=== PATIENT | male | born 1935 | race Caucasian/White ===

== ENCOUNTER 2017-02-27 05:38 | Day surgery (SDC) | payer OTHER ==
[~2017-02-27] VITALS: Ht 175.3 cm; Wt 77.3 kg
[~2017-02-27 05:38] MED LIST: ASPI81 PO; ATOR40TA49 PO; CARV12.52 PO; FURO1TAB93 PO; HYDR-3534 PO; ISOS30 PO; KLOR20TA6 PO; LISI-360 PO; PANT20 PO; REST30CA PO; TAB-TAB PO
[2017-02-27] MEDS ORDERED: LORazepam 1 MG TAB SL SCH (06:00)
[2017-02-27] MEDS ORDERED: CHLORHEXIDINE GLUCONATE 2 % 1 PACK (2 CLOTHS) TOPICAL PRN (06:00)
[2017-02-27] MEDS: SODIUM CHLORID 0.9% 500 ML INJ 500 ML IV SCH ×2 (06:00→22:40)
[2017-02-27] MEDS ORDERED: LACTATED RINGER'S 1000 ML IV PRN (06:00)
[2017-02-27] MEDS ORDERED: SODIUM CHLORID 0.9% 500 ML IV PRN (06:00)
[2017-02-27] MEDS ORDERED: METOPROLOL TARTRATE 25 MG TAB PO PRN (06:00)
[2017-02-27] MEDS ORDERED: POVIDONE IODINE 5% (ANTISEPSIS KIT) 4 APPLICATIONS EACH NARE PRN (06:00)
[2017-02-27 07:02] LABS: AUTOMATED NEUTROPHIL # 4.2 TH/MM3 (1.8-7.7); BASOPHIL % 0.7 % (0.0-2.0); EOSINOPHIL # 0.2 TH/MM3 (0-0.4); EOSINOPHIL % 2.5 % (0.0-4.0); HEMO FLAGS DIFF FINAL; LYMPH % 16.2 % (9.0-44.0); MEAN CELL VOLUME 99.9 FL (80.0-100.0); MEAN CORPUSCULAR HEMOGLOBIN 35.2 PG (27.0-34.0); MEAN CORPUSCULAR HGB CONC 35.3 % (32.0-36.0); NEUT % 67.6 % (16.0-70.0); PLATELET COUNT 266 TH/MM3 (150-450); RED CELL DISTRIBUTION WIDTH 14.3 % (11.6-17.2); WHITE BLOOD COUNT 6.2 TH/MM3 (4.0-11.0)
[2017-02-27 07:06] VITALS: BP 131/86; PULSE 49; RESP 18; TEMP 97.1; O2SAT 97
[2017-02-27] MEDS ORDERED: MULT-65 PO (07:10)
[2017-02-27] MEDS ORDERED: PANT20TA2 PO (07:10)
[2017-02-27] MEDS ORDERED: ATOR40TA16 PO (07:10)
[2017-02-27] MEDS ORDERED: NITR0.4S SL (07:10)
[2017-02-27] MEDS ORDERED: CARV12.52 PO (07:10)
[2017-02-27] MEDS ORDERED: ISOS30TA3 PO (07:10)
[2017-02-27] MEDS ORDERED: ASPI81TA23 PO (07:10)
[2017-02-27] MEDS ORDERED: POTA8TAB PO (07:10)
[2017-02-27] MEDS ORDERED: HYDR-2376 PO (07:10)
[2017-02-27] MEDS ORDERED: FURO40TA PO (07:10)
[2017-02-27] MEDS ORDERED: TEMA30CA PO (07:10)
[2017-02-27] MEDS ORDERED: CALC1TAB87 PO (07:10)
[2017-02-27] MEDS ORDERED: LISI10TA3 PO (07:10)
[2017-02-27 07:17] LABS: BICARBONATE 28.3 MEQ/L (21.0-32.0); POTASSIUM 3.6 MEQ/L (3.5-5.1)
[2017-02-27 07:21] LABS: APTT (PATIENT) 24.9 SEC (24.3-30.1); INTERNATIONAL NORMALIZED RATIO 1.3 RATIO; PROTHROMBIN TIME - PATIENT 12.8 SEC (9.8-11.6)
[2017-02-27] MEDS ORDERED: LIDOCAINE HCL 2% 50 ML VIAL ONE (07:36)
[2017-02-27] MEDS ORDERED: HEPARIN-NS/PF INJ 1,000 ML ONE (07:37)
[2017-02-27] MEDS ORDERED: KETAMINE HCL 500 MG/10 ML VIAL ONE (07:40)
[2017-02-27] MEDS ORDERED: HEPARIN-NS/PF INJ 2,000 ML ONE (09:13)
[2017-02-27] MEDS ORDERED: PROTAMINE SULFATE 50 MG/5 ML VIAL ONE (10:43)
--- NOTE | 2017-02-27 10:56 | CATHPROC ---
[employer] HIS Report Study Information Study Number Admission Scheduled Start Study Start [id number] Feb 27 2017 5:38AM 02/27/2017 Feb 27 2017 7:11AM [place] [facility] Electrophysiology Study Admit Source Facility Department Other [facility] Physician and Clinical Staff Initial Wilmer Pacheco Mold Holder Miguel Owusu,RT(R) Mold Holder Patience Suresh,RESIDENTIAL PROPERTY TAX APPRAISER Other Anesthesia, BATTERY FILLER Recorder Mavis Holder,MARLON Recorder Audrey Vasques,MARLON Scrub Zamzam Swain,BUILDING CONSTRUCTION ESTIMATOR TECH2 Procedures Performed Procedure Location (Site) Vessel Name Ablation Procedure ICE CATHETER INSERT RA Atruim RF Ablation RF Ablation LV Ventricle Equipment Time Accounting Tutor Description Size Mfg Part Number Used/Scraped BIOSENSE WILL CATHETER, THERMOCOOL NON- [id number] 07:58 Used INC. EZEQUIEL TC D-F *[id number] BIOSENSE WILL 07:53 SET, TUBING COOLFLOW * [id number] Used INC. [id number] 07:13 [employer]arta [employer] PACK, CCL CUSTOM * Used *[id number] 07:13 Sarta PACER MOTA, LIMB * 2530 *[id number] Used [id number] 08:13 NAMIC TUBING, HIGH PRESSURE 48" 48" Used *[id number] 07:13 [employer] MED[employer] BLANKET,WARM AIR CCL * Used *[id number] 07:55 [employer] CATHETER, JSN, QUAD FR 5 Used *[id number] 07:55 [employer] CATHETER, JSN, QUAD FR 5 Used *[id number] 07:55 [employer] CATHETER, JSN, QUAD FR 5 Used *[id number] 07:13 [employer] ELECTRODE KIT, EZEQUIEL X SURFACE * Used *[id number] SHEATH, EPS, FR10 FAST CATH 07:54 [employer] FR 10 TRIO [id number] Used TRIO 07:54 [employer] SHEATH, EPS, FR4 FAST CATH FR 4 [id number] Used [id number] 07:52 [employer] SHEATH, EPS, FR5 FAST CATH FR 5 Used *[id number] 07:54 [employer] SHEATH, EPS, FR6 FAST CATH FR 6 Used *[id number] 07:54 [employer] SHEATH, EPS, FR7 FAST CATH FR 7 [id number] Used [id number] 07:54 [employer] SHEATH, EPS, FR8 FAST CATH FR 8 Used *[id number] 08:29 [facility] SHEATH, EPS, FR8 FAST CATH FR 8 Used *[id number] CATHETER, ACUNAV FR10 ICE [id number] 08:06 CATY FR 10 Used (CATY) *[id number] [facility], ELECTROSURGICAL 07:13 * [id number] *[id number] Used SURGICAL GROUNDING (BLUE) History: Allergies Allergy Reaction No Known Allergies History: Risk Factors Hypertension Dyslipidemia Previous UT Previous Heart Failure Yes Yes Yes Yes Prior PCI Prior CABG Yes Yes Labs Hgb (g/dl) Hct (%) RBC (MIL/MM3) WBC (l/cumm) Platelets (thousands) 11.60-17.00 35.00-51.00 4.00-5.90 4.00-11.00 150.00-450.00 14.0 40 4 6.2 266 Na (meq/l) K (meq/l) Cl (meq/l) CO2 (mmol/L) Ca (mg/dl) 136.00-145.00 3.50-5.10 98.00-107.00 21.00-32.00 8.50-10.10 143 3.6 108 28.3 9.1 PT (sec) PTT (sec) INR (PTT:PT) 9.80-11.60 24.30-30.10 0.90-1.10 12.8 24.9 1.3 Medication Medication Total Dose (Bolus/Oral) Medication Total Dosage/Unit 1% XYLOCAINE 40 mL HEPARIN 8000 units PROTAMINE 20 mg Medications (Bolus/Oral) Medication Time Given Dosage/Unit Administered By Reason 1% XYLOCAINE 02/27/2017 8:22:00 AM 20 mL Wilmer Kelly 20 mL 1% XYLOCAINE given in lab by Wilmer Kelly in Left Groin via Subcutaneous. Ordered by Rohti Kelly. 1% XYLOCAINE 02/27/2017 8:27:23 AM 20 mL Wilmer Kelly 20 mL 1% XYLOCAINE given in lab by Wilmer Kelly in Right Groin via Subcutaneous. Ordered by Luna Kelly. HEPARIN 02/27/2017 8:42:49 AM 5000 units Anesthesia, BATTERY FILLER As per physicians v erbal order 5000 units HEPARIN given in lab by Anesthesia, BATTERY FILLER via Peripheral IV. Ordered by Wilmer Kelly. Reas on: As per physicians verbal order. HEPARIN 02/27/2017 8:56:42 AM 2000 units Anesthesia, BATTERY FILLER As per physicians v erbal order 2000 units HEPARIN given in lab by Anesthesia, BATTERY FILLER via Peripheral IV. Ordered by Wilmer Kelly. Reas on: As per physicians verbal order. HEPARIN 02/27/2017 9:17:05 AM 1000 units Anesthesia, BATTERY FILLER As per physicians v erbal order 1000 units HEPARIN given in lab by Anesthesia, BATTERY FILLER via Peripheral IV. Ordered by Wilmer Kelly. Reas on: As per physicians verbal order. 02/27/2017 10:44:00 PROTAMINE 20 mg Anesthesia, BATTERY FILLER As per physicians verbal order AM 20 mg PROTAMINE given in lab by Anesthesia, BATTERY FILLER via Peripheral IV. Ordered by Wilmer Kelly. Reason: As per physicians verbal order. Initial Case Assessment Cardiovascular HR Rhythm NIBP Chest Pain 89 irreg 131/86 0 Edema Present Skin color Skin None Normal Warm Dry Circulatory - Right Pulses Dorsalis Pedis 1 Scale (0,1,2,3,4,d) Circulatory - Left Pulses Dorsalis Pedis 1 Scale (0,1,2,3,4,d) Circulatory - Lower Extremities Color Lower Right Color Lower Left Normal Normal Neurological State Oriented to time-place- Alert Moves all extremities person Respiration - General Respiration Rate SpO2 (%) (B/min) 20 96 Final Case Assessment Cardiovascular HR NIBP 58 159/72 Edema Present Skin color Skin None Normal Warm Dry Neurological State Oriented to time-place- Alert Moves all extremities person Respiration - General Respiration Rate SpO2 (%) (B/min) 20 99 Chronological Log Time Study Chronological Log 7:32:46 Patient arrived via Bed. 7:32:47 Patient Name, D.O.B, / Armband Verified By R.N. 7:32:48 Consent signed by the physician and the patient and verified by the [facility] staff. 7:32:49 History and physical on the chart. 7:32:50 Pre-op and post- op instructions given; patient acknowledges understanding of instructions. 7:33:38 Verbal Stimulation=2 Physical Stimulation=2 Airway=2 Respiration=2 TOTAL=8. (0=absent, 1=andrew ited, 2=present) 7:33:53 Presedation assessment performed by [facility] RN. 7:33:57 Patient has been NPO for More than 6Hrs. 7:33:59 Skin Breakdown- none per pt 7:34:09 Patient Warmer Placed on the Table. 7:36:10 Disposable Defibrillator Pads Placed On Patient. 7:36:30 Anesthesia at bedside. Assumes care of patient. 7:37:10 Asher Prominences Protected 7:37:14 A # 20 IV was noted in the Antecubital (right). Grade = 0 0.9%NaCl infusing @ KVO. 7:37:15 A # 20 IV was noted in the Antecubital (left). Grade = 0 0.9%NaCl infusing @ KVO. Assessment: Initial Case, HR=89 BPM, Rhythm=irreg, YSJL=048/86 mmhg, Chest Pain=0, Edema=None, Color=Normal, Skin = Warm, Dry Right Pulses: Mainor Ped=1 Left Pulses: Mainor Ped=1 7:38:58 Lower Right Extremities: Color=Normal Lower Left Extremities: Color=Normal Neurological: State=Alert, Ox3, HAZEL Respiration: Resp=20 B/min, SpO2=96 % 7:39:09 Table restraints applied according to hospital policy 7:55:22 Bilateral groins prepped with 2% chlorhexidine, and draped after a 3 minute waiting time. 7:58:22 Reference ECG taken 8:00:57 MD paged 8:16:12 MD arrived. Time Out. Correct patient, procedure, procedure equipment, site and side verified with physician present. Time 8:21:39 concurred by MD, individual staff and BATTERY FILLER. Time Out #2 - Consents verified, patient in correct position, all results are labled and display ed, safety precautions 8:21:57 taken, antibiotics administered. Time out concurred by MD, individual staff and BATTERY FILLER in procedur e 8:21:59 Case Start 8:22:00 20 mL 1% XYLOCAINE given in lab by Wilmer Kelly in Left Groin via Subcutaneous. Ordered by Wilmer Kelly. 8:22:50 Vascular access was obtained in the Fem Vein (left). 8:22:56 Vascular access was obtained in the Fem Vein (left). 8:23:00 Vascular access was obtained in the Fem Vein (left). 8:23:31 Vascular access was obtained in the Fem Art (left). 8:26:02 A SHEATH, EPS, FR6 FAST CATH FR 6 was advanced into the Fem Vein (left) using the Modified S eldinger technique. 8:26:04 A SHEATH, EPS, FR7 FAST CATH FR 7 was advanced into the Fem Vein (left) using the Modified S eldinger technique. 8:26:06 A SHEATH, EPS, FR4 FAST CATH FR 4 was advanced into the Fem Art (left) using the Modified Se marissa technique. A CATHETER, JSN, QUAD FR 5 was advanced vis Fem Vein (left) and placed in the CS. Placement was visually 8:26:10 confirmed under fluoroscopy. A CATHETER, JSN, QUAD FR 5 was advanced vis Fem Vein (left) and placed in the HIS. Placement was visually 8:26:40 confirmed under fluoroscopy. A CATHETER, JSN, QUAD FR 5 was advanced vis Fem Vein (right) and placed in the RVA. Placement wa s visually 8:27:03 confirmed under fluoroscopy. 8:27:23 20 mL 1% XYLOCAINE given in lab by Wilmer Kelly in Right Groin via Subcutaneous. Ordered by Wilmer Kelly. 8:27:48 Vascular access was obtained in the Fem Vein (right). 8:28:06 A SHEATH, EPS, FR6 FAST CATH FR 6 was advanced into the Fem Art (right) using the Modified S eldinger technique. A SHEATH, EPS, FR10 FAST CATH TRIO FR 10 TRIO was advanced into the Fem Vein (left) using the M odified Seldinger 8:33:31 technique. A CATHETER, THERMOCOOL NON-EZEQUIEL TC D-F was advanced vis Fem Vein (left) and placed in the RVOT. Placement 8:33:40 was visually confirmed under fluoroscopy. 8:34:45 RF Ablation of the ~SITE~ with a CATHETER, THERMOCOOL NON-EZEQUIEL TC D-F. RVOT ABLATION OUT. 8:35:42 8:36:55 Vascular access was obtained in the Fem Art (right). 8:37:07 A SHEATH, EPS, FR8 FAST CATH FR 8 was advanced into the Fem Art (right) using the Modified S eldinger technique. 8:38:40 CATHETER, ACUNAV FR10 ICE (CATY) FR 10 Was Postioned. 5000 units HEPARIN given in lab by Anesthesia, BATTERY FILLER via Peripheral IV. Ordered by Wilmer Kelly . Reason: As per 8:42:49 physicians verbal order. A CATHETER, THERMOCOOL NON-EZEQUIEL TC D-F was advanced vis Fem Vein (right) and placed in the LV. P lacement was 8:45:06 visually confirmed under fluoroscopy. 8:45:07 Mapping in progress. 8:52:21 Activated Clotting Time Drawn 8:55:48 RF Ablation of the LV with a CATHETER, THERMOCOOL NON-EZEQUIEL TC D-F. 8:56:33 ACT (Normal Range 90-180) = 247 2000 units HEPARIN given in lab by Anesthesia, BATTERY FILLER via Peripheral IV. Ordered by Wilmer Kelly . Reason: As per 8:56:42 physicians verbal order. 9:05:41 Activated Clotting Time Drawn 9:16:53 ACT (Normal Range 90-180) = 252 1000 units HEPARIN given in lab by Anesthesia, BATTERY FILLER via Peripheral IV. Ordered by Wilmre Kelly . Reason: As per 9:17:05 physicians verbal order. 9:53:50 Activated Clotting Time Drawn 9:58:53 ACT (Normal Range 90-180) = 274 10:09:44 Ablation continues. 10:30:11 Activated Clotting Time Drawn 10:32:18 ACT (Normal Range 90-180) = 276 10:38:54 Ablation catheter removed. 10:40:39 Ablation completed. 10:41:04 Ablation procedure performed: VT. PVC Ablation 10:41:41 EP Procedure was performed. Assessment: Final Case, HR=58 BPM, FYQX=267/72 mmhg, Edema=None, Color=Normal, Skin = Warm, Dry 10:41:57 Neurological: State=Alert, Ox3, HAZEL Respiration: Resp=20 B/min, SpO2=99 % 10:42:45 Catheter(s) removed without difficulty 10:42:48 Sheath(s) left in place, will be removed in Holding Area 10:42:53 Sterile dressing applied to site 10:43:25 No case complications noted. 10:43:28 Cine recording checked. 10:43:34 Holding Area notified of successful intervention. 10:43:37 Bedside Report will be given. 10:43:40 DOCU called. Spoke to Bobbi MASON 20 mg PROTAMINE given in lab by Anesthesia, BATTERY FILLER via Peripheral IV. Ordered by Wilmer Kelly. Reason: As per 10:44:00 physicians verbal order. 10:44:01 Defibrillator and ground pads removed. Skin intact. 10:52:16 Activated Clotting Time Drawn 10:54:42 ACT (Normal Range 90-180) = 135 10:55:07 Case End 11:10:00 Patient moved to stretcher and transported to DOCU in stable condition. End Study - Contrast Media Used In Study Contrast Total Opened (mL) Total Used (mL) Total Wasted (mL) Unspecified 0 0 0 End Study - Radiation Exposure Fluoro Time (minutes) 35.9 End Study - Patient Disposition Complications Transferred To Interventional Outcome No Telemetry Bed successful
[2017-02-27] MEDS ORDERED: ATROPINE SULFATE 1 MG/ML VIAL IV PUSH PRN (11:00)
[2017-02-27] MEDS ORDERED: LORazepam 2 MG/ML VIAL IV PUSH PRN (11:00)
[2017-02-27] MEDS ORDERED: oxyCODONE/ACETAMINOPHEN 5 MG/325 MG TAB PO PRN (11:00)
[2017-02-27] MEDS ORDERED: ONDANSETRON HCL 4 MG/2 ML VIAL IV PUSH PRN (11:00)
[2017-02-27] MEDS ORDERED: BACITRACIN OINT 0.9 GM PKT TOP ONE (11:00)
[2017-02-27] MEDS ORDERED: LIDOCAINE HCL 1% 50 ML VIAL INFIL PRN (11:00)
[2017-02-27] MEDS ORDERED: SODIUM CHLOR 0.9% 250 ML INJ 250 ML IV PRN (11:00)
[2017-02-27] MEDS ORDERED: DO NOT ADM ANY ANTICOAGULANT DRUGS PRN (11:02)
[2017-02-27] MEDS ORDERED: MORPHINE SULFATE 4 MG/ML INJ ONE (11:11)
[2017-02-27] MEDS ORDERED: NON-FORMULARY DRUG (Hydrocodone-Acetaminophen 1 TAB) PO PRN (11:15)
[2017-02-27] MEDS ORDERED: TEMAZEPAM 15 MG CAP PO PRN (11:15)
[2017-02-27 13:00] VITALS: BP 157/88; PULSE 73; RESP 16; TEMP 97.8; O2SAT 96
[2017-02-27] MEDS ORDERED: PILL SPLITTER OTHER PRN (15:15)
[2017-02-27] MEDS: SOTALOL HCL 80 MG TAB PO SCH ×2 (15:17→21:01)
[2017-02-27 16:00] VITALS: BP 128/86; PULSE 69; RESP 16; TEMP 98.2; O2SAT 97
[2017-02-27 19:00] VITALS: PULSE 58
--- NOTE | 2017-02-27 19:30 | EKG ---
Date Performed: 02/27/2017 Time Performed: 06:46:14 PTAGE: 81 years EKG: Sinus rhythm with PVC(s). Anterolateral ST-T changes are nonspecific Can not exclude ischemia. Since previous tra cing, no significant change noted Abnormal ECG PREVIOUS TRACING : 01/02/2016 16.34 DOCTOR: Jeremias Hall Interpretating Date/Time 02/27/2017 19:29:43
[2017-02-27 20:00] VITALS: BP 127/65; PULSE 127; TEMP 98.1; O2SAT 92
[2017-02-27] MEDS ORDERED: CARVEDILOL 12.5 MG TAB PO SCH (21:00)
[2017-02-27] MEDS ORDERED: ATORVASTATIN 40 MG TAB PO SCH (21:00)
[2017-02-27] MEDS: oxyCODONE/ACETAMINOPHEN 5 MG/325 MG TAB PO PRN (21:02)
[2017-02-27 23:00] VITALS: BP 127/65; PULSE 50; PULSE 66; TEMP 98.1; O2SAT 92
[2017-02-28 03:00] VITALS: PULSE 58
[2017-02-28 04:50] VITALS: BP 135/69; PULSE 64; TEMP 98.5; O2SAT 90
--- NOTE | 2017-02-28 08:03 | PD.CARD.PN ---
Subjective Subjective Remarks Feeling better. Objective Medications Current Medications Medications (Trade) Dose Ordered Sig/Stephie Route Start Time Stop Time Status Last Admin Sodium Chloride 500 ml @ 30 mls/hr [id number] IV 02/27/17 06:00 (Ativan) 1 mg PIPE FITTER GAS PIPE SL 02/27/17 06:00 03/02/17 05:59 02/27/17 07:00 Lactated Ringer's 1,000 ml @ 30 mls/hr Q24H PRN IV 02/27/17 06:00 03/02/17 05:59 Sodium Chloride 500 ml @ 30 mls/hr [id number] PRN IV 02/27/17 06:00 03/02/17 05:59 (Lopressor) 25 mg PIPE FITTER GAS PIPE PRN PO 02/27/17 06:00 03/02/17 05:59 (Betadine 5% Antisepsis Kit) 1 applic PIPE FITTER GAS PIPE PRN EACH NARE 02/27/17 06:00 03/02/17 05:59 (Chlorhexidine 2% Cloth) 3 pack PIPE FITTER GAS PIPE PRN TOPICAL 02/27/17 06:00 03/02/17 05:59 (Percocet 5-325 Mg) 1 tab Q4H PRN PO 02/27/17 11:00 (Percocet 5-325 Mg) 2 tab Q4H PRN PO 02/27/17 11:00 02/27/17 21:02 (Ativan Inj) 0.5 mg UNSCH PRN IV PUSH 02/27/17 11:00 02/28/17 10:59 (Atropine Inj) 0.5 mg UNSCH PRN IV PUSH 02/27/17 11:00 Sodium Chloride 250 ml @ 500 mls/hr ONCE PRN IV 02/27/17 11:00 02/28/17 10:59 (Zofran Inj) 4 mg Q4H PRN IV PUSH 02/27/17 11:00 (Xylocaine 1% Inj (50 ml)) 10 ml UNSCH PRN INFIL 02/27/17 11:00 02/28/17 10:59 (Ecotrin Ec) 81 mg DAILY PO 02/28/17 09:00 (Lipitor) 40 mg HS PO 02/27/17 21:00 02/27/17 21:01 (Lasix) 40 mg DAILY PO 02/28/17 09:00 (Imdur) 30 mg DAILY PO 02/28/17 09:00 (Prinivil) 10 mg DAILY PO 02/28/17 09:00 (Protonix) 20 mg DAILY PO 02/28/17 09:00 (Restoril) 30 mg HS PRN PO 02/27/17 11:15 (Theragran) 1 tab DAILY PO 02/28/17 09:00 Miscellaneous Information ALL NURSING DEPARTME... UNSCH PRN .XX 02/27/17 11:02 02/28/17 11:01 (Betapace) 120 mg Q12HR PO 02/27/17 15:00 02/27/17 21:01 (Pill Splitter) 1 ea UNSCH PRN OTHER 02/27/17 15:15 Vital Signs / I&O Vital Signs Date Time Temp Pulse Resp B/P (MAP) Pulse Ox O2 Delivery O2 Flow Rate FiO2 02/28/17 04:50 98.5 64 135/69 (91) 90 02/28/17 03:00 58 02/27/17 23:00 66 02/27/17 23:00 98.1 50 127/65 (85) 92 02/27/17 20:00 98.1 127 127/65 (85) 92 02/27/17 19:00 58 02/27/17 16:00 98.2 69 16 128/86 (100) 97 02/27/17 13:00 97.8 73 16 157/88 (111) 96 02/27/17 12:22 95 Room Air I/O 02/27/17 02/27/17 02/27/17 02/28/17 02/28/17 02/28/17 07:00 15:00 23:00 07:00 15:00 23:00 Intake Total 240 ml 240 ml Output Total 250 ml 156 ml Balance -10 ml 84 ml Intake Oral 240 ml 240 ml Output Urine Total 250 ml 156 ml Stool Total 0 ml # Voids 2 Physical Exam GENERAL: Well-nourished, well-developed patient. SKIN: Warm and dry. Groin site soft without bruising or bleeding. HEAD: Normocephalic. EYES: No scleral icterus. No injection or drainage. NECK: Supple, trachea midline. No JVD or lymphadenopathy. CARDIOVASCULAR: Regular rate and rhythm without murmurs, gallops, or rubs. RESPIRATORY: Breath sounds equal bilaterally. No accessory muscle use. GASTROINTESTINAL: Abdomen soft, non-tender, nondistended. EXTREMITIES: No cyanosis, or edema. NEUROLOGICAL: Awake, alert, and oriented x 3. Non-focal. Assessment and Plan Problem List: (1) Heart palpitations ICD Codes: R00.2 - Palpitations Plan: Feeling better status post PVC ablation. (2) S/P ablation of accessory bypass tract ICD Codes: Z98.890 - Other specified postprocedural states Plan: Groin sites stable, discharge home, follow-up with Dr. spencer in 3 weeks per my discussion with him. Marla Pérez Feb 28, 2017 08:03
[2017-02-28] MEDS ORDERED: FUROSEMIDE 40 MG TAB PO SCH (09:00)
[2017-02-28] MEDS ORDERED: ISOSORBIDE MONONITRATE 30 MG TAB PO SCH (09:00)
[2017-02-28] MEDS ORDERED: LISINOPRIL 10 MG TAB PO SCH (09:00)
[2017-02-28] MEDS ORDERED: ASPIRIN EC 81 MG TABEC PO SCH (09:00)
[2017-02-28] MEDS ORDERED: MULTIVITAMIN TAB PO SCH (09:00)
[2017-02-28] MEDS ORDERED: PANTOPRAZOLE SOD 20 MG DELAYED RELEASE TAB PO SCH (09:00)
[2017-02-28 09:40] LABS: APTT (PATIENT) 25.4 SEC (24.3-30.1); INTERNATIONAL NORMALIZED RATIO 1.3 RATIO; PROTHROMBIN TIME - PATIENT 13.5 SEC (9.8-11.6)
[2017-02-28] MEDS: oxyCODONE/ACETAMINOPHEN 5 MG/325 MG TAB PO PRN (09:51)
[2017-02-28] MEDS: SOTALOL HCL 80 MG TAB PO SCH (09:53)
--- NOTE | 2017-02-28 15:03 | EKG ---
Date Performed: 02/28/2017 Time Performed: 06:32:34 PTAGE: 81 years EKG: Sinus arrhythmia with PVC(s) Prolonged QT interval Lateral ST-T changes are nonspecific Bor derline ECG PREVIOUS TRACING : 02/27/2017 14.39 DOCTOR: Shon Howe Interpretating Date/Time 02/28/2017 15:02:37
--- NOTE | 2017-02-28 15:53 | EKG ---
Date Performed: 02/27/2017 Time Performed: 14:39:40 PTAGE: 81 years EKG: Sinus rhythm with PVC(s) and nonsustained ventricular tachycardia Extensive ST-T changes are nonspecific Abnormal ECG PREVIOUS TRACING : 02/27/2017 06.46 DOCTOR: Shon Hoew Interpretating Date/Time 02/28/2017 15:52:50
== END 2017-02-28 10:19 | disposition home or self-care (01) ==
LOC: HDOC 05:38 → HDIC 05:39 → HCIS 13:01 → HDOC 02-28 10:19
PROVIDERS: ATTEND Internal Medicine Interventional Cardiology
DX: I47.2 Ventricular tachycardia (principal); I49.3 Ventricular premature depolarization; I49.8 Other specified cardiac arrhythmias; I25.5 Ischemic cardiomyopathy; I10 Essential (primary) hypertension; E78.5 Hyperlipidemia, unspecified
CPT/HCPCS: 00537; 80048; 85002; 85025; 85610; 85730; 86077; 86850; 86870; 86900; 86901; 86902; 86920; 86922; 93005; 93613; 93653; 93662; C1730; C1732; C1759; C2630; J1644; J2270; J2720; 93654